=== PATIENT | male | born 1960 | race Hispanic/Latino ===

== ENCOUNTER 2023-07-15 11:42 | Emergency (ER) | payer MEDICAID ==
[~2023-07-15] VITALS: Ht 170.2 cm; Wt 99.8 kg
[~2023-07-15 11:42] MED LIST: ALBUHFA IH; ASCO500T92 PO; CEPH500T PO; CHOL100020 PO; FLUT50BL IH; LACT10SO85 PO; LISI20TA24 PO; METF-444 PO; METR-172 PO; PANT40TA54 PO; PROP10TA10 PO; RIFA550T PO; SIME125C81 PO
[2023-07-15 12:13] LABS: BASOPHILS # (AUTO) 0.07 K/uL (0.00-0.20); BASOPHILS % (AUTO) 1.4 % (0.0-5.0); EOSINOPHILS # (AUTO) 0.43 K/uL (0.00-0.70); EOSINOPHILS % (AUTO) 8.4 % (0.0-8.0); HEMATOCRIT 31.9 % (42-54); IMMATURE GRANULOCYTE ABSOLUTE 0.01 K/uL (0-1); LYMPHOCYTES # (AUTO) 1.3 K/uL (1.0-4.8); LYMPHOCYTES % (AUTO) 24.6 % (21.0-51.0); MEAN CORPUSCULAR HEMOGLOBIN 24.9 pg (27.0-33.0); MEAN CORPUSCULAR HGB CONC 31.3 g/dL (32.0-36.0); MEAN CORPUSCULAR VOLUME 79.4 fL (79-99); MONOCYTES # (AUTO) 0.5 K/uL (0.1-1.0); MONOCYTES % (AUTO) 9.8 % (3.0-13.0); NEUTROPHILS # (AUTO) 2.9 K/uL (1.8-7.7); NEUTROPHILS % (AUTO) 55.6 % (40.0-77.0); PLATELET COUNT (AUTO) 181 K/uL (130-400); RED BLOOD CELL COUNT(AUTO) 4.02 MIL/uL (4.50-6.20); RED CELL DISTRIBUTION WIDTH 17.1 % (11.0-15.5); WHITE BLOOD COUNT (AUTO) 5.1 K/uL (4.8-10.8)
[2023-07-15] MEDS: MAG/ALUM/SIMETH 30 ML UDCUP PO ONE (12:17)
[2023-07-15] MEDS: DICYCLOMINE HCL 10 MG/5 ML ML PO ONE (12:17)
[2023-07-15] MEDS: LIDOCAINE HCL 2% VISCOUS 15 ML UDCUP PO ONE (12:17)
[2023-07-15] MEDS: PANTOPRAZOLE 40 MG/VIAL IVP ONE (12:17)
[2023-07-15 12:23] LABS: APPEARANCE,URINE CLEAR (CLEAR); BILIRUBIN,URINE NEGATIVE (NEGATIVE); COLOR,URINE YELLOW (YELLOW); GLUCOSE, URINE (UA) NEGATIVE (NEGATIVE); KETONES,URINE NEGATIVE (NEGATIVE); LEUKOCYTE ESTERASE ,URINE NEGATIVE Leu/uL (NEGATIVE); NITRATE,URINE NEGATIVE (NEGATIVE); OCCULT BLOOD,URINE NEGATIVE (NEGATIVE); PH,URINE 5.5 (5.0-8.0); PROTEIN,URINE NEGATIVE (NEGATIVE); UROBILINOGEN,URINE 0.2 mg/dL (0.2-1.0)
[2023-07-15 12:24] LABS: INR 1.01 (0.85-1.15); PROTHROMBIN TIME 11.9 SEC (9.6-11.6)
[2023-07-15 12:25] LABS: ADD UA MICROSCOPIC NO
[2023-07-15 12:25] LABS: CREATININE 0.9 mg/dL (0.5-1.3); POTASSIUM 4.4 mmol/L (3.5-5.1)
[2023-07-15 12:26] LABS: PARTIAL THROMBOPLASTIN TIME 26.7 SEC (26.3-35.5)
[2023-07-15 12:29] LABS: ALBUMIN 2.9 g/dL (3.5-5.0); BILIRUBIN,TOTAL 0.4 mg/dL (0.2-1.0); MAGNESIUM 1.7 mg/dL (1.80-2.40); TOTAL PROTEIN, SERUM 7.2 g/dL (6.0-8.3)
[2023-07-15 13:18] LABS: B-TYPE NATRIURETIC PEPTIDE 38 pg/mL (0-100)
[2023-07-15] MEDS ORDERED: DICY20TA2 PO (16:07)
[2023-07-15] MEDS: MAGNESIUM OXIDE 400 MG TABLET PO ONE (16:16)
[2023-07-15 16:49] VITALS: BP 123/66; PULSE 60; RESP 18; O2SAT 100
== END 2023-07-15 16:50 | disposition home or self-care (01) ==
LOC: EDH 11:42
DX: R14.0 Abdominal distension (gaseous) (principal); E83.42 Hypomagnesemia; I10 Essential (primary) hypertension; E78.00 Pure hypercholesterolemia, unspecified; E11.9 Type 2 diabetes mellitus without complications; Z79.899 Other long term (current) drug therapy; Z79.84 Long term (current) use of oral hypoglycemic drugs
CPT/HCPCS: 99285; 74176; 96374; 71045; 82550; 83735; 84484; 80053; 83880; 82140; 83690; 85025; 85610; 85730; 81003; 36415; 93005; S0164; C9113

== ENCOUNTER → 2023-10-21 | Outpatient (CLI) | payer MEDICAID ==
[~2023-10-21] MED LIST changes: +ASCO500T20 PO; -ASCO500T92 PO; -CEPH500T PO; -CHOL100020 PO; +DICY20TA2 PO; +LACT10SO5 PO; -LACT10SO85 PO; +LEVO750T39 PO; +LINA72CA PO; -METR-172 PO; +MULT-1367 PO; -RIFA550T PO; +SOLI5TAB6 PO
== END | disposition home or self-care (01) ==
LOC: RAH 10:59
PROVIDERS: ATTEND Internal Medicine Gastroenterology
DX: R10.12 Left upper quadrant pain (principal); R14.0 Abdominal distension (gaseous)
CPT/HCPCS: 78264; A9541